=== PATIENT | female | born 1945 | race Caucasian/White ===

== ENCOUNTER 2017-01-23 08:34 | Outpatient (CLI) | payer BC ==
[2017-01-23] VITALS (9 sets, daily range): BP systolic 123–137; BP diastolic 57–70
[~2017-01-23] VITALS: Ht 158.8 cm; Wt 57.2 kg
[~2017-01-23 08:34] MED LIST: IV RINGERS,LACTATED 1000ML 1,000 ML IV SCH
[2017-01-23 08:58] LABS: HEMATOCRIT 41.2 % (36.0-47.0); HEMOGLOBIN 13.5 g/dL (12.0-15.5); RED BLOOD COUNT 4.39 x10^6/uL (3.50-5.40); RED CELL DISTRIBUTION WIDTH 13.5 % (11.5-14.5); WHITE BLOOD COUNT 6.5 x10^3/uL (4.0-11.0)
[2017-01-23] MEDS ORDERED: KRIL1CAP11 PO (09:01)
[2017-01-23] MEDS ORDERED: ASCO500T2 PO (09:01)
[2017-01-23] MEDS ORDERED: VALS80TA3 PO (09:01)
[2017-01-23] MEDS ORDERED: CARV6.252 PO (09:01)
[2017-01-23] MEDS ORDERED: CHOL10003 PO (09:01)
[2017-01-23] MEDS ORDERED: MULT-658 PO (09:01)
[2017-01-23] MEDS ORDERED: MELO7.5T29 PO (09:01)
[2017-01-23] MEDS ORDERED: AMLO5TAB2 PO (09:01)
[2017-01-23] MEDS ORDERED: IBUP200C9 PO (09:01)
[2017-01-23] MEDS ORDERED: ASPI-630 PO (09:01)
[2017-01-23] MEDS ORDERED: ASCO1TAB2 PO (09:01)
[2017-01-23] MEDS ORDERED: SOTA80TA48 PO (09:01)
[2017-01-23] MEDS ORDERED: ATOR20TA PO (09:01)
[2017-01-23] MEDS ORDERED: CA C1TAB63 PO (09:01)
[2017-01-23] MEDS ORDERED: FENO145T2 PO (09:01)
[2017-01-23] MEDS ORDERED: OMEP20CA9 PO (09:01)
[2017-01-23] MEDS ORDERED: ZOLP10TA PO (09:01)
[2017-01-23] MEDS ORDERED: MIRT15TA3 PO (09:01)
[2017-01-23 09:11] LABS: INR 1.1 (0.8-1.1); PROTHROMBIN TIME PATIENT 13.9 SEC (11.7-14.0)
[2017-01-23 09:19] LABS: CALCIUM 9.5 mg/dL (8.5-10.1); CREATININE 1.2 mg/dL (0.6-1.0); POTASSIUM 4.1 mmol/L (3.5-5.1)
[2017-01-23] MEDS ORDERED: LIDOCAINE 2% TOPICAL JELLY 30GM TUBE. TP ONE ×2 (10:13→10:45)
[2017-01-23] MEDS ORDERED: LIDOCAINE 2% VISCOUS 15 ML SOLUTION. ONE (10:13)
[2017-01-23] MEDS ORDERED: BENZOCAINE ONE 20% MUCOSAL SPRAY. (10:14)
[2017-01-23] MEDS ORDERED: PROPOFOL 20 ML IV ONE (10:15)
[2017-01-23] MEDS ORDERED: LIDOCAINE 2% PF Vial for OR 5 ML VIAL. ONE (10:15)
[2017-01-23] MEDS ORDERED: MIDAZOLAM HCL/PF 2 MG/2 ML VIAL. ONE (10:19)
[2017-01-23] MEDS ORDERED: fentaNYL PF VIAL 100 MCG/2 ML VIAL ONE (10:19)
[2017-01-23] MEDS ORDERED: NITROGLYCERIN 200 MCG/2 ML SYRINGE FOR CATH/VASC LAB. ONE (10:42)
[2017-01-23] MEDS ORDERED: HEPARIN for IV BOLUS 10,000 UNIT/10 ML VIAL. ONE (10:43)
[2017-01-23] MEDS ORDERED: IOHEXOL 300 MG/ML 100ML VIAL. ONE (10:43)
[2017-01-23] MEDS ORDERED: VERAPAMIL 5 MG/2 ML VIAL. ONE (10:43)
[2017-01-23] MEDS ORDERED: LIDOCAINE 2% 20 ML VIAL. ONE (10:43)
[2017-01-23] MEDS ORDERED: LIDOCAINE 2% 20 ML VIAL. IJ ONE (10:45)
[2017-01-23] MEDS ORDERED: BENZOCAINE ONE 20% MUCOSAL SPRAY. MM (10:45)
[2017-01-23] MEDS ORDERED: MIDAZOLAM HCL/PF 2 MG/2 ML VIAL. IV ONE (10:45)
[2017-01-23] MEDS ORDERED: LIDOCAINE 2% VISCOUS 15 ML SOLUTION. SWSW ONE (10:45)
[2017-01-23] MEDS ORDERED: IOHEXOL 300 MG/ML 100ML VIAL. IART ONE (10:45)
[2017-01-23] MEDS ORDERED: fentaNYL PF VIAL 100 MCG/2 ML VIAL IV ONE (10:45)
[2017-01-23] MEDS ORDERED: HEPARIN for IV BOLUS 10,000 UNIT/10 ML VIAL. IART ONE (10:45)
[2017-01-23] MEDS ORDERED: NITROGLYCERIN 200 MCG/2 ML SYRINGE FOR CATH/VASC LAB. IART ONE (10:45)
[2017-01-23] MEDS ORDERED: VERAPAMIL 5 MG/2 ML VIAL. IART ONE (10:45)
[2017-01-23] MEDS ORDERED: CONTRAST GIVEN MC PRN (11:15)
[2017-01-23] MEDS ORDERED: IV 1/2 NORMAL SALINE 1,000 ML IV SCH (11:54)
[2017-01-23] MEDS ORDERED: NITROGLYCERIN SUBLINGUAL 0.4 MG BOTTLE OF 25. SL PRN (12:00)
--- NOTE | 2017-01-23 12:10 | CARD ---
APPROVED REPORT Procedure(s) performed: Left heart catheterization, selective coronary angiography and selective chastity ography of the bypass graft via right transradial approach INDICATION The indication(s) include : unstable angina . PROCEDURE NARRATIVE After explaining the risks, benefits and alternative options, informed consent was obtained from brenden ent. Patient was brought to the [facility] Life and her right wrist was prepped and draped in the usu al fashion after confirming a positive modified Waqas's test. Arterial access was obtained in the [facility] radial artery and 6 Armenian sheath was inserted. 6 Armenian JR4 catheter was used to perform selectiv e angiography of the right coronary artery, sequential saphenous vein graft to the diagonal/LAD and s urprisingly also were able to engage and perform angiography of the left main coronary artery with th e same catheter. LVEDP and transaortic gradients were measured as well. Patient tolerated the procedu re well. Hemostasis was achieved using TR band. There were no immediate complications. FINDINGS 1. Hemodynamics: Left ventricle end diastolic pressure 26 mmHg. No pullback gradient across the aor tic valve. 2. Coronary and bypass graft angiography: a. The left main coronary artery arose from the left sinus of Valsalva, gave rise to the left anti-d escending and left circumflex arteries and did not show any significant stenosis. b. The left anterior descending artery showed a long 70% stenosis in the mid segment. c. The left circumflex artery did not show any significant stenosis. d. The right coronary artery was a large and dominant vessel arising from the right sinus of Valsalv a that did not show any significant stenosis. e. The sequential saphenous vein graft to the diagonal branch and the left anterior descending artery was widely patent. Conclusion Single-vessel coronary artery disease s/p coronary artery bypass surgery with patent sequential saphe nous vein graft to the diagonal branch/LAD without any other significant stenoses. Recommendations Medical Therapy
--- NOTE | 2017-01-23 12:16 | CARD ---
APPROVED REPORT EXAM: Two-dimensional and M-mode echocardiogram with Doppler and color Doppler. INDICATION S/P MVR Reason For Test : Evaluate MVR PROCEDURE After obtaining informed consent, patient underwent transesophageal echo in the [employer] [facility]. Type of Sedation : Conscious sedation Sedation was administered by nurse anesthesist, see BRITTANY.. Sedation was achieved with Propofol 120mg intravenously. The DARLYN was performed without complications. Throughout the procedure, the blood pressure, pulse oximetry, cardiac rhythm, and rate were monitored . The patient tolerated the procedure without adverse effects. Recovery from conscious sedation was une ventful and vital signs were stable. LEFT VENTRICLE The left ventricle is normal size. There is borderline concentric left ventricular hypertrophy. Left ventricle systolic function is mildly impaired. The Ejection Fraction is 45-50%. There is mild global hypokinesis of the left ventricle. No left ventricle thrombus noted on this study. RIGHT VENTRICLE The right ventricle is normal size. There is normal right ventricular wall thickness. The right ventr icular systolic function is normal. ATRIA The left atrium is borderline dilated. The right atrium size is normal. The interatrial septum is int act with no evidence for an atrial septal defect or patent foramen ovale as noted on 2-D or Doppler i maging. There is no thrombus noted in the left atrial appendage. AORTIC VALVE The aortic valve is mildly sclerotic. The aortic valve is trileaflet. Doppler and Color Flow revealed trace aortic regurgitation. There is no significant aortic valvular stenosis. MITRAL VALVE There is a bioprosthetic mitral valve in place. Bioprosthesis leaflets are thin and move normally. Do ppler evidence of mitral regurgitation is normal for this valve (mild). Gradients are normal for this prosthetic mitral valve (Pmean 4-5 mmHg.) There are no vegetations present on this prosthetic mitral valve. TRICUSPID VALVE Doppler and Color Flow revealed trace tricuspid regurgitation. The pulmonary artery systolic pressure is estimated at 17 mmHg. There is no pulmonary hypertension. PULMONIC VALVE Doppler and Color Flow revealed no pulmonic valvular regurgitation. There is no pulmonic valvular kendy nosis. GREAT VESSELS The aortic root is normal in size. The ascending aorta is normal in size. The pulmonary is not well v isualized. Normal pulmonary venous flow (Doppler). The IVC is normal in size and collapses >50% with inspiration. PERICARDIAL EFFUSION There is no evidence of significant pericardial effusion. Critical Notification Critical Value: No <Conclusion> Left ventricle systolic function is mildly impaired. The Ejection Fraction is 45-50%. Bioprosthetic mitral valve appears well seated and functioning well. Doppler and Color Flow revealed trace tricuspid regurgitation. There is no evidence of significant pericardial effusion.
== END 2017-01-23 13:53 | disposition home or self-care (01) ==
LOC: CCL 08:34
PROVIDERS: ATTEND Internal Medicine Cardiovascular Disease
DX: I25.10 Atherosclerotic heart disease of native coronary artery without angina pectoris (principal); I20.0 Unstable angina; I10 Essential (primary) hypertension; I07.1 Rheumatic tricuspid insufficiency; I34.0 Nonrheumatic mitral (valve) insufficiency; Z90.49 Acquired absence of other specified parts of digestive tract; Z90.710 Acquired absence of both cervix and uterus; Z79.01 Long term (current) use of anticoagulants
CPT/HCPCS: 36415; 80048; 85027; 85610; 85730; 93312; 93325; 93459; 99152; 99153; C1769; C1892; J2250; J2704; J3010; J3490; Q9967; C1887; J1644; J2001; J7120

== ENCOUNTER → 2017-05-23 | Outpatient (CLI) | payer BC ==
[2017-01-23 13:12] VITALS: BP 136/57
[~2017-05-23] MED LIST changes: +AMLO5TAB2 PO; +ASCO1TAB2 PO; +ASCO500T2 PO; +ASPI-630 PO; +ATOR20TA PO; +CA C1TAB63 PO; +CARV6.252 PO; +CHOL10003 PO; +FENO145T2 PO; +IBUP200C9 PO; -IV RINGERS,LACTATED 1000ML 1,000 ML IV SCH; +KRIL1CAP10 PO; +MELO7.5T29 PO; +MIRT15TA3 PO; +MULT-658 PO; +OMEP20CA9 PO; +SOTA80TA48 PO; +VALS80TA3 PO; +ZOLP10TA PO
--- NOTE | 2017-05-23 14:45 | KCIC ---
DATE: 05/23/2017 EXAM: MAMMO DENA SCREENING BILATERAL HISTORY: Screening COMPARISON: 3 years earlier This study was interpreted with the benefit of Computerized Aided Detection (CAD). FINDINGS: Breast Density: SCATTERED The breast parenchyma shows scattered fibroglandular densities. Breast parenchyma level B. There has not been a significant change in the appearance of the breasts compared to the previous exam IMPRESSION: Benign finding BI-RADS CATEGORY: 2 BENIGN FINDING(S) RECOMMENDED FOLLOW-UP: 12M 12 MONTH FOLLOW-UP PQRS compliance statement: Patient information was entered into a reminder system with a target due date 05/23/2018 for the next mammogram. Mammography is a sensitive method for finding small breast cancers, but it does not detect them all and is not a substitute for careful clinical examination. A negative mammogram does not negate a clinically suspicious finding and should not result in delay in biopsying a clinically suspicious abnormality. "Our facility is accredited by the [employer] Mammography Program."
== END | disposition home or self-care (01) ==
LOC: KCIC MAMMO 13:28
PROVIDERS: ATTEND Internal Medicine
DX: Z12.31 Encounter for screening mammogram for malignant neoplasm of breast (principal)
CPT/HCPCS: 77063; G0202; 77067

== ENCOUNTER → 2018-08-20 | Outpatient (CLI) | payer BC ==
[2017-01-23 13:12] VITALS: BP 136/57
[~2018-08-20] MED LIST changes: +AMLO5TAB10 PO; -AMLO5TAB2 PO; +CARV6.2511 PO; -CARV6.252 PO; +DICL100G18 TP; -FENO145T2 PO; +FENO145T30 PO; +OMEP20CA10 PO; -OMEP20CA9 PO; +SERT25TA PO
--- NOTE | 2018-08-20 15:27 | CARD ---
MR#: [id number] Date of Study: 08/20/2018 Ordering Physician: ANGELIA LOBO, Referring Physician: ANGELIA LOBO Tech: Tyesha Craig RDCS APPROVED REPORT EXAM: Two-dimensional and M-mode echocardiogram with Doppler and color Doppler. Other Information Quality : Good INDICATION Mitral Valve Replacement Surgery/Intervention Status/Post Mitral Valve Replacement: Bioprosthetic Type: Porcine Date: 2008 2D DIMENSIONS RVDd2.3 (2.9-3.5cm)Left Atrium(2D)4.5 (1.6-4.0cm) IVSd1.0 (0.7-1.1cm)Aortic Root(2D)2.2 (2.0-3.7cm) LVDd4.4 (3.9-5.9cm)LVOT Diameter1.9 (1.8-2.4cm) PWd1.0 (0.7-1.1cm)LVDs3.2 (2.5-4.0cm) FS (%) 28.0 %SV48.1 ml LVEF(%)54.4 (>50%) Aortic Valve AoV Peak Ponce.143.2cm/sAoV VTI26.6cm AO Peak GR.8.2mmHgLVOT Peak Ponce.97.5cm/s AO Mean GR.4mmHgAVA (VMAX)1.93cm2 MASHA (VTI)2.13pi2PK P 1/2 Gubh529sk Mitral Valve MV E Iyfcoxjk326.1cm/sMV E Peak Gr.8mmHg MV DECEL OOYD563uyWE A Dsvqscfd662.9cm/s MV E Mean Gr.4mmHgE/A Ratio0.9 Tricuspid Valve TR P. Ywrqoszr086zv/sRAP XJSNBIPH4xwQk TR Peak Gr.53qdLfGRKG96lvXd Pulmonary Vein S1 Ywzoeeoz35.9cm/sD2 Uozvexkr50.4cm/s LEFT VENTRICLE The left ventricle is normal size. There is normal left ventricular wall thickness. The left ventricu lar systolic function is normal. The Ejection Fraction is 50-55%. There is normal LV segmental wall m otion. Transmitral Doppler flow pattern is Grade I-abnormal relaxation pattern. RIGHT VENTRICLE The right ventricle is normal size. The right ventricular systolic function is normal. ATRIA The left atrium is mildly dilated. The right atrium size is normal. The interatrial septum is intact with no evidence for an atrial septal defect or patent foramen ovale as noted on 2-D or Doppler imagi ng. AORTIC VALVE The aortic valve is calcified but opens well. Doppler and Color Flow revealed moderate aortic regurgi tation. There is no significant aortic valvular stenosis. MITRAL VALVE There is no evidence of mitral valve prolapse. Calculated mitral valve area is 1.3 cm2 with maximum p ressure gradient of 8 mmHg and mean pressure gradient of 4 mmHg. Doppler and Color-flow revealed trac e mitral regurgitation. There is a porcine mitral valve. Prosthetic mitral valve appears well seated. TRICUSPID VALVE The tricuspid valve is normal in structure and function. Doppler and Color Flow revealed mild tricusp id regurgitation. The PA pressure was estimated at 25 mmHg. There is no tricuspid valve stenosis. PULMONIC VALVE The pulmonary valve is normal in structure and function. Doppler and Color Flow revealed mild pulmoni c valvular regurgitation. There is no pulmonic valvular stenosis. GREAT VESSELS The aortic root is normal in size. The ascending aorta is normal in size. The IVC is normal in size a nd collapses >50% with inspiration. PERICARDIAL EFFUSION There is no evidence of significant pericardial effusion. Critical Notification Critical Value: No <Conclusion> The left ventricular systolic function is normal. The Ejection Fraction is 50-55%. There is normal LV segmental wall motion. Transmitral Doppler flow pattern is Grade I-abnormal relaxation pattern. The left atrium is mildly dilated. Moderate aortic regurgitation. Bioprosthetic mitral valve appears well seated and functioning well. Mild tricuspid regurgitation. The PA pressure was estimated at 25 mmHg. There is no evidence of significant pericardial effusion. Signed by : Angelia Lobo, Electronically Approved : 08/20/2018 15:25:42
== END | disposition home or self-care (01) ==
LOC: ECHO 13:55
PROVIDERS: ATTEND Internal Medicine Cardiovascular Disease
DX: Z01.818 Encounter for other preprocedural examination (principal); I08.2 Rheumatic disorders of both aortic and tricuspid valves; Z95.4 Presence of other heart-valve replacement
CPT/HCPCS: 93306

== ENCOUNTER → 2019-02-27 | Outpatient (CLI) | payer BC ==
[2017-01-23 13:12] VITALS: BP 136/57
[~2019-02-27] MED LIST changes: +REGADENOSON 0.4 MG/5 ML DISP.SYRIN. IV ONE
--- NOTE | 2019-02-27 12:09 | RAD ---
MR#: [id number] Date of Study: 02/27/2019 Ordering Physician: ANGELIA LOBO, Referring Physician: DANIA LYNN Tech: RT Jadon Cardoso) (N) APPROVED REPORT Test Type: Pharmacological Stress Nurse/Tech: Lashonda Monterroso RN Test Indications: CAD Cardiac History: Hypertension, CABG x2 and mitral valve replacement Medications: See Electronic Medical Record Medical History: See Electronic Medical Record Resting ECG: A-fib with PVC's Resting Heart Rate: 59 bpm Resting Blood Pressure: 139/63mmHg Pretest Chest Pain: No chest pain Nurse/Tech Notes S1,S2 and click from valve. Lungs clear to auscultation. Consent: The procedure was explained to the patient in lay terms. Informed consent was witnessed. Velasquez eout was entered into [employer]. History and Stress Test performed by RT Janae (Yuri) (N) Pharm. Details Pharmacologic stress testing was performed using 0.4mg per 5ml of regadenoson given intravenously ove r 7-10 seconds. Stress Symptoms Dyspnea POST EXERCISE Reason for Termination: Infusion complete Target HR: No Max HR: 97 bpm Max Blood Pressure: 126/52mmHg Blood Pressure response to exercise: Abnormal blood pressure response during stress. Heart Rate response to exercise: WNL Chest Pain: No. Arrhythmia: Yes. PVC's ST Change: No. INTERPRETATION Stress EKG Conclusion: No evidence of stress induced EKG changes. Imaging Protocol IMAGE PROTOCOL: Rest Tc-99m/stress Tc-99m 1 day Rest: Stress: Viability: Radiopharm.Tc99m OygqnuspwXg47n Sestamibi Dose10.3mCi 33mCi Duration 13min. 13min. Img Date 02/27/2019 02/27/2019 Inj-Img Zgvt25beh. 60min. Rest Admin Site:IV - Left AntecubitalAdministrator:RT Jadon Cardoso)(N) Stress Admin Site: IV - Left AntecubitalAdministrator: RT Jadon York)(N) STRESS DATA End Diast. Vol.74.0mlLVEDV index BSA48.0ml End Syst. Vol.19.0mlLVESV index BSA12.0ml Myocardial Figm404.0gEject. Perpkjas87.0% Stress Scores Regional WT0.00Summed WT5.00 Regional WM0.00Summed WM8.00 LV Perfusion There is a moderate sized, moderate to severe in intensity, fully reversible basal to mid inferior wa ll defect suggestive of perfusion abnormalities in the RCA territory. Wall Motion Normal wall motion, EF 65% LV Perf. Quant 17 Seg. SSS6.00 17 Seg. SRS2.00 17 Seg. SDS4.00 Stress Defect Extent (% LAD)0.00Rest Defect Extent (% LAD)0.00Rev. Defect Extent (% LAD)0.00 Stress Defect Extent (% LCX) 2.50Rest Defect Extent (% LCX)1.30Rev. Defect Extent (% LCX)0.00 Stress Defect Extent (% RCA)30.00Rest Defect Extent (% RCA)7.80Rev. Defect Extent (% RCA)15.60 Stress Defect Extent (% LAURENCE)10.00Rest Defect Extent (% LAURENCE)4.60Rev. Defect Extent (% LAURENCE)3.70 Other Information Quality:Good Risk Assessment: Moderate Risk Conclusion 1. No evidence of stress induced EKG changes 2. Reversible inferior wall defect. 3. Moderate risk study 4. Normal EF at > 70% Signed by : Justyn Baca, Electronically Approved : 02/27/2019 12:08:31
== END | disposition home or self-care (01) ==
LOC: NM 08:01
PROVIDERS: ATTEND Internal Medicine Cardiovascular Disease
DX: I25.10 Atherosclerotic heart disease of native coronary artery without angina pectoris (principal); I10 Essential (primary) hypertension; I49.3 Ventricular premature depolarization; I48.91 Unspecified atrial fibrillation; Z95.2 Presence of prosthetic heart valve; Z95.1 Presence of aortocoronary bypass graft
CPT/HCPCS: 78452; 93017; A9500; J2785

== ENCOUNTER 2019-03-07 08:34 | Outpatient (CLI) | payer BC ==
[~2019-03-07] VITALS: Ht 157.5 cm; Wt 58.1 kg
[2019-03-07] VITALS (11 sets, daily range): BP systolic 98–143; BP diastolic 55–77
[~2019-03-07 08:34] MED LIST changes: -REGADENOSON 0.4 MG/5 ML DISP.SYRIN. IV ONE
[2019-03-07 09:26] LABS: HEMATOCRIT 36.2 % (36.0-47.0); HEMOGLOBIN 12.3 g/dL (12.0-15.5); RED BLOOD COUNT 3.92 x10^6/uL (3.50-5.40); RED CELL DISTRIBUTION WIDTH 13.4 % (11.5-14.5)
[2019-03-07 09:27] LABS: CREATININE 0.8 mg/dL (0.6-1.0); GFR 69.9; POTASSIUM 3.9 mmol/L (3.5-5.1)
[2019-03-07 09:43] LABS: PROTHROMBIN TIME PATIENT 13.7 SEC (11.7-14.0)
[2019-03-07] MEDS ORDERED: NITROGLYCERIN 200 MCG/2 ML SYRINGE FOR CATH/VASC LAB. ONE (09:52)
[2019-03-07] MEDS ORDERED: VERAPAMIL 5 MG/2 ML VIAL. ONE ×2 (09:52→10:00)
[2019-03-07] MEDS ORDERED: fentaNYL PF VIAL 100 MCG/2 ML VIAL ONE (09:52)
[2019-03-07] MEDS ORDERED: MIDAZOLAM HCL/PF 2 MG/2 ML VIAL. ONE ×2 (09:52→10:42)
[2019-03-07] MEDS ORDERED: HEPARIN for IV BOLUS 10,000 UNIT/10 ML VIAL. ONE (09:52)
[2019-03-07] MEDS ORDERED: HEPARIN for IV BOLUS 10,000 UNIT/10 ML VIAL. IART ONE (10:45)
[2019-03-07] MEDS ORDERED: VERAPAMIL 5 MG/2 ML VIAL. IART ONE (10:45)
[2019-03-07] MEDS ORDERED: MIDAZOLAM HCL/PF 2 MG/2 ML VIAL. IV ONE (10:45)
[2019-03-07] MEDS ORDERED: LIDOCAINE 1% PF 2 ML VIAL. INJ ONE (10:45)
[2019-03-07] MEDS ORDERED: IODIXANOL 320 MG/ML 100 ML VIAL. IART ONE (10:45)
[2019-03-07] MEDS ORDERED: fentaNYL PF VIAL 100 MCG/2 ML VIAL IV ONE (10:45)
[2019-03-07] MEDS ORDERED: NITROGLYCERIN 200 MCG/2 ML SYRINGE FOR CATH/VASC LAB. IART ONE (10:45)
[2019-03-07] MEDS ORDERED: LIDOCAINE 1% Multi-Dose 20 ML VIAL. ONE (10:46)
[2019-03-07] MEDS ORDERED: LIDOCAINE 1% Multi-Dose 20 ML VIAL. INJ ONE (11:00)
--- NOTE | 2019-03-07 11:12 | PDOC ---
MODERATE SEDATION ASSESSMENT RISKS/ALTERNATIVES Risks/Alternatives Risks and alternatives of this type of sedation and procedure discussed with: RISK/ALTERNATIVES: Patient H & P ON CHART H & P H & P on chart and reviewed for co-morbid conditions and appropriate labs. H&P ON CHART: Yes STATUS PREG STATUS ASSESSED: N/A MEDS/ALLERGIES REVIEWED Meds/Allergies Reviewed Medications and Allergies including time and route of recently administered narcotics and sedatives. MEDS/ALLERGIES REVIEWED: Yes ASA RATING ASA RATING: III AIRWAY ASSESSMENT Airway Assessment Airway patency, oral function limitations, presence of caps, crowns, dentures, partials, and ability to extend neck assessed. AIRWAY ASSESSMENT: Yes MALLAMPATI SCORE MALLAMPATI SCORE: II PRE-SEDATION ASSESSMENT PRE-SEDATION ASSESSMENT: Yes ANGELIA LOBO MD Mar 07, 2019 11:12
[2019-03-07] MEDS ORDERED: IV 1/2 NORMAL SALINE 1,000 ML IV SCH (11:13)
[2019-03-07] MEDS ORDERED: NITROGLYCERIN SUBLINGUAL 0.4 MG BOTTLE OF 25. SL PRN (11:15)
--- NOTE | 2019-03-07 11:46 | CARD ---
MR#: [id number] Date of Study: 03/07/2019 Ordering Physician: ANGELIA TRUJILLO, Referring Physician: ANGELIA TRUJILLO Tech: Skye Nettles APPROVED REPORT Technologist: Skye Nettles Nurse: Thuy Amezquita R.N. Procedure(s) performed: Left heart catheterization, selective coronary angiography, selective angiogr aphy of the bypass graft and left ventriculography fl time: 2.6 min dose: 23 gy/cm2 contrast: 85 ml sedation: 58 MINS INDICATION The indication(s) include : Dyspnea on exertion in a patient with known history of coronary artery di sease concerning for unstable angina. CSHA Clinical Frailty Scale CSHA Clinical Frailty Scale: Mildly Frail Heart Failure Heart Failure: No PROCEDURE NARRATIVE After explaining the risks, benefits and alternative options, informed consent was obtained from brenden ent. Patient was brought to the cardiac Business Services Director and her right wrist was prepped and draped in the us ual fashion after confirming a positive modified Waqas's test. Attempts at obtaining radial arterial access were unsuccessful due to small caliber vessel. 10 mL of 2% lidocaine was then infiltrated into the skin and subcutaneous tissues of previously prepped right groin, arterial access obtained in the common femoral artery and 6 [place] Leonean sheath was inserted. 6 [place] JL 3.5 and 6 [place] JR4 catheters p laced to perform selective angiography of the left and right coronary arteries. 6 [place] JR4 catheter was then used to perform selective angiography of the sequential saphenous vein graft to the diagona l/left anterior descending artery. 6 [place] pigtail catheter was used to perform left ventriculograph y. Patient tolerated the procedure well. Hemostasis was achieved using Angio-Seal. There were no imme diate complications. FINDINGS 1. Hemodynamics: Left ventricular end-diastolic pressure 15 mmHg. No pullback gradient across the a ortic valve. 2. Left ventriculography: Mild left ventricle systolic dysfunction with ejection fraction estimated at 45%. 1+ mitral regurgitation seen. 3. Coronary and bypass graft angiography: a. The left main coronary artery arose from the left sinus of Valsalva, gave rise to the left anteri or descending and left circumflex arteries and did not show any significant stenosis. b. The left anterior descending artery showed 80% stenosis in the midsegment. c. The left circumflex artery did not show any significant stenosis. d. The right coronary artery was a large and dominant vessel arising from the right sinus of Valsalv a that did not show any significant stenosis. e. The graft described in CABG report as sequential saphenous vein graft from aorta to diagonal branc h and then the left anterior descending artery was patent. However, upon closer review of films after the procedure, this vein graft appeared to end at the diagonal branch. There was competitive flow in the very distal segment of the left anterior descending artery suggestive of an additional patent gr aft. Conclusion 1. Single-vessel coronary artery disease involving left anterior descending artery s/p CABG with pat ent saphenous vein graft to diagonal/LAD 2. Mild left ventricle systolic dysfunction with ejection fraction estimated at 45%. Recommendations Medical Therapy Signed by : Angelia Trujillo, Electronically Approved : 03/07/2019 11:45:45
--- NOTE | 2019-03-07 13:46 | NUR ---
Discharge Note: RAMIREZ TAYLOR Discharge instructions and discharge home medications reviewed with Patient and ; and a copy given. All questions have been answered and understanding verbalized. The following instructions and handouts were given: Post moderate sedation and groin site care. Discontinued lines and drains: left AC with tip intact. Patient discharged to home with via car.
== END 2019-03-07 13:36 | disposition home or self-care (01) ==
LOC: CCL 08:34
PROVIDERS: ATTEND Internal Medicine Cardiovascular Disease
DX: I25.10 Atherosclerotic heart disease of native coronary artery without angina pectoris (principal); R93.49 Abnormal radiologic findings on diagnostic imaging of other urinary organs; R00.2 Palpitations; I10 Essential (primary) hypertension; E78.5 Hyperlipidemia, unspecified; I48.0 Paroxysmal atrial fibrillation; Z90.49 Acquired absence of other specified parts of digestive tract; Z90.710 Acquired absence of both cervix and uterus; Z79.82 Long term (current) use of aspirin; Z79.899 Other long term (current) drug therapy; Z95.1 Presence of aortocoronary bypass graft; Z98.890 Other specified postprocedural states; Z95.2 Presence of prosthetic heart valve; Z82.49 Family history of ischemic heart disease and other diseases of the circulatory system
CPT/HCPCS: 36415; 80048; 85027; 85610; 93459; C1760; C1769; C1892; G0269; J1644; J2250; J3010; Q9967; 99152; 99153; C1771

== ENCOUNTER → 2019-10-17 | Outpatient (CLI) | payer BC ==
[2019-03-07 13:27] VITALS: BP 126/66
[~2019-10-17] MED LIST changes: +ACET325T9 PO; +FENO145T3 PO; -FENO145T30 PO; +IOHEXOL 240 MG/ML 50ML VIAL. ONE; +LOPE-101 PO; -OMEP20CA10 PO; +OMEP20CA16 PO; +methylPREDNISolone ACETATE 40 MG/ML VIAL. ONE; +methylPREDNISolone ACETATE 80 MG/ML VIAL. ONE
--- NOTE | 2019-10-17 15:28 | PAIN ---
DATE OF SERVICE: 10/17/2019 INITIAL CONSULTATION FOR PAIN CLINIC CHIEF COMPLAINT: Right-sided back and flank pain. HISTORY OF PRESENT ILLNESS: This is a 73-year-old female who presents with history of pain in right flank and back since shingles outbreak about a month ago. The patient reports it has been getting worse since about the last 2 weeks as far as the pain goes. The rash has resolved and the lesions have resolved. She has been taking acyclovir initially and also gabapentin and taking tramadol which does decrease the pain to a moderate extent. The patient reports that she no longer has any active lesions but has significant pain in the area of the rash on the right side, basically the mid to low part of the back with radiation around into the right hip and anterior iliac region and upper right thigh on the right side. The patient reports that it is sharp and stabbing, worse with activity, much worse at night, and is keeping her awake from sleep. During the day, she reports it has been fairly tolerable and taking gabapentin as well as putting Lidoderm patches on, which have helped also. The patient reports it awakens him from sleep at least every hour. The patient reports that it does not affect her bowel or bladder control or ability to walk. During the day, it is actually slightly better. The patient reports that valacyclovir seemed to help initially, but now the pain is returning significantly in the distribution of the rash on the right side only. The patient reports no loss of motor function. No left sided symptoms as well. PAST MEDICAL HISTORY: Significant for hypertension, artificial heart valve, congestive heart failure, and coronary artery bypass in the past with coronary artery disease. The patient has history of arthritis, dizziness, and headaches. PREVIOUS SURGERY: Includes right knee replacement, cataract extraction bilaterally, open heart surgery, mitral valve repair, colostomy and takedown, hysterectomy, cholecystectomy, and appendectomy. CURRENT MEDICATIONS: Include daily baby aspirin, Ambien, atorvastatin, fenofibrate, Diovan, sotalol, carvedilol, amlodipine, Tylenol, and loperamide. Also Advil, omeprazole, Krill Oil, vitamins, calcium, ascorbic acid, and vitamin D3. 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 FAMILY HISTORY: Significant for coronary artery disease and heart failure. SOCIAL HISTORY: The patient does not drink alcohol, but very rarely. Does not use any tobacco products. Denies any illegal, illicit, or recreational drugs. She is and lives with her spouse. Lives locally in [place], [place]. She reports she is currently retired. REVIEW OF SYSTEMS: The patient's review of systems is positive for those items mentioned in history of present illness. All systems reviewed and otherwise negative. It is complete, full, and well documented on the patient's chart. PHYSICAL EXAMINATION: VITAL SIGNS: The patient's blood pressure is 164/91, pulse 78, respirations 18, temperature 98.4 degrees Fahrenheit, height 5 feet 2 inches, and weight is 122 pounds. GENERAL: The patient is awake, alert, oriented, and appropriate. Very pleasant demeanor. HEENT: Normocephalic and atraumatic. Extraocular movements are intact and symmetrical. Oral cavity: Mucous membranes are moist and pink. Dentition is intact. NECK: Anterior throat supple without palpable lymphadenopathy noted. Swallow reflex symmetrical. CHEST: Normal on inspection. Breath sounds are clear to auscultation bilaterally. HEART: S1, S2 clear. No murmurs auscultated. ABDOMEN: Soft, nontender, and nondistended. No palpable organomegaly is noted. No rebound or guarding demonstrated. BACK: Spine grossly in the midline. Normal appearing thoracic kyphosis and slight flattening of lumbar lordotic curvature. The patient's lumbar paraspinous muscle shows symmetrical on inspection and palpation shows some moderate tenderness diffusely bilaterally, going diffusely without significant radiation. The patient has good rotational motion of the lumbar spine, both laterally as well as extension and flexion without significant pain reported. The patient has a very faint erythematous rash in the mid to lower lumbar distribution, radiating or traveling into the right and then to the right flank and is continuing to the right lower abdomen and just inferior to the superior iliac crest on the right side but not to the midline. No active lesions, no blisters, no scabbing, and appears well-healed throughout. No such rashes on the left side. The area of the rash is mildly tender without significant allodynia with palpation. EXTREMITIES: The patient's lower extremities show deep tendon reflexes 2+ in the patellar and tendo calcaneus tendons are 1+. Motor exam is strong with 5/5 dorsiflexion and extension. Quadriceps and hamstring flexion symmetrical and equal. Peripheral pulses are 1+ in posterior tibia. No peripheral edema is noted bilaterally. The patient is able to stand, stand on her toes, walks without any difficulty and with a normal-appearing gait, not using any assistive devices. SKIN: The patient's skin shows warm and dry and good turgor. No edema. No other sores or bruising outside of the rash mentioned in the low back. IMPRESSION: 1. This is a 73-year-old female with approximately 1-month history of post-herpetic neuralgia after shingles outbreak in right lumbar distribution as noted. 2. History of coronary artery disease. 3. Arthritis. 4. Dizziness and headaches. PLAN: Options were discussed with the patient including conservative medical managements, continued medical managements, physical therapies, as well as interventional techniques. She would like to pursue interventional techniques. We discussed a lumbar epidural steroid injection using description as well as anatomical models to describe the procedure. The patient would like to proceed with this. Risks were discussed including but not limited to bleeding, infection, possibility of epidural hematoma, subsequent neurological compromise, dural puncture, headaches, spinal cord and/or nerve damage, side effects of steroid medication, and poor results regarding pain control. The patient understands and wished to proceed. The patient will return to clinic in approximately 2 weeks for followup. She was counseled on return appointment, activity level, and side effects to be aware of. DIAGNOSIS: Postherpetic neuralgia, right L1-L2 distribution. PROCEDURE: Lumbar epidural steroid injection, translaminar approach at L1-L2 level using C-arm fluoroscopic guidance under sterile prep and drape using local anesthetic. MEDICATION INJECTED: A total of 120 mg Depo-Medrol plus 10 mL preservative-free normal saline and 2 mL of contrast. CONDITION AT DISCHARGE: Stable. The patient tolerated procedure well and had no complications. MADISON EDEN MD DR: GOPAL/diana JOB#: [id number] / [id number]
== END ==
LOC: PNCL 09:50
PROVIDERS: ATTEND Family Medicine
DX: B02.29 Other postherpetic nervous system involvement (principal); M51.26 Other intervertebral disc displacement, lumbar region; I11.0 Hypertensive heart disease with heart failure; I50.9 Heart failure, unspecified; I25.10 Atherosclerotic heart disease of native coronary artery without angina pectoris; Z95.1 Presence of aortocoronary bypass graft; Z87.39 Personal history of other diseases of the musculoskeletal system and connective tissue; Z98.42 Cataract extraction status, left eye; Z98.41 Cataract extraction status, right eye; Z93.3 Colostomy status; Z90.710 Acquired absence of both cervix and uterus; Z90.49 Acquired absence of other specified parts of digestive tract; Z88.1 Allergy status to other antibiotic agents; Z96.1 Presence of intraocular lens
CPT/HCPCS: 62323; J1030; J1040; Q9966; 62273

== ENCOUNTER → 2020-02-17 | Outpatient (CLI) | payer BC ==
[2019-03-07 13:27] VITALS: BP 126/66
[~2020-02-17] MED LIST changes: -ASCO500T2 PO; +ASCO500T4 PO; +BARIUM SULFATE 0.1% 450 ML SUSP PO ONE; -DICL100G18 TP; +DICL100G54 TP; -IOHEXOL 240 MG/ML 50ML VIAL. ONE; +IOHEXOL 300 MG/ML 100ML VIAL. IV ONE; -methylPREDNISolone ACETATE 40 MG/ML VIAL. ONE; -methylPREDNISolone ACETATE 80 MG/ML VIAL. ONE
--- NOTE | 2020-02-17 15:53 | KCIC ---
CT abdomen and pelvis with contrast History: Chronic diarrhea, ileitis Technique: After the administration of intravenous contrast, CT imaging was performed of the abdomen and pelvis. Water-soluble contrast was also given. Multiplanar images are reviewed. Exposure: One or more of the following individualized dose reduction techniques were utilized for this examination: 1. Automated exposure control 2. Adjustment of the mA and/or kV according to patient size 3. Use of iterative reconstruction technique. Comparison: None Findings: There has been median sternotomy. There is coronary calcification. There is no significant focal abnormality of the liver, spleen, pancreas, adrenal glands. There is probable degree of hepatic steatosis. Both kidneys enhance without hydronephrosis. There is 2.6 cm cyst of the superior medial left kidney. There is a 1.9 cm cyst of the mid to inferior left kidney. There is a 0.8 cm cyst of the mid to inferior right kidney. Gallbladder is absent. The common bile duct is somewhat prominent about 0.9 cm although sometimes can be normally seen after cholecystectomy. There is partially calcified herbert hepatis node about 1.1 cm short axis dimension. There is scattered mild calcified plaque of the abdominal aorta. There is 1.9 cm diverticulum along the posterior wall of stomach. There is long segment degree of wall thickening and enhancement of the proximal small bowel such as on the left abdomen and also of the duodenum. There is anastomotic site of the mid to distal sigmoid colon, also evidence of appendectomy. There is scattered colonic diverticulosis greater of the right colon. There is no significant inflammatory type change about the bowel. There is no significant free fluid or free air. Urinary bladder is distended. There is minimal fat in the right inguinal canal, no internal bowel. There is variable multilevel lumbar degenerative disc disease and facet degenerative change. There is degenerative change of the pubic symphysis. There is mild lumbar levoscoliosis. There is fat-containing left Bochdalek hernia. Uterus is absent. Impression: 1. There is long segment wall prominence of segments of proximal small bowel such as in the left abdomen and of the duodenum as could be seen with enteritis in the appropriate clinical setting. There is no significant localized inflammatory type change about the bowel. There is colonic diverticulosis greater of the right colon, not associated with adjacent inflammatory change. 2. There are bilateral renal cysts. There is probable hepatic steatosis. 3. There is distention of urinary bladder. Electronically signed by: Dylon Cho MD (02/17/2020 3:50 PM) [id number]
== END | disposition home or self-care (01) ==
LOC: KCIC CT 08:48
PROVIDERS: ATTEND Internal Medicine Gastroenterology
DX: K57.30 Diverticulosis of large intestine without perforation or abscess without bleeding (principal); K46.9 Unspecified abdominal hernia without obstruction or gangrene; N28.1 Cyst of kidney, acquired; I70.0 Atherosclerosis of aorta; N32.89 Other specified disorders of bladder; M51.36 Other intervertebral disc degeneration, lumbar region; K52.9 Noninfective gastroenteritis and colitis, unspecified
CPT/HCPCS: 74177; 82565; Q9967

== ENCOUNTER → 2020-04-08 | Outpatient (CLI) | payer BC ==
[2019-03-07 13:27] VITALS: BP 126/66
[~2020-04-08] MED LIST changes: -BARIUM SULFATE 0.1% 450 ML SUSP PO ONE; -IOHEXOL 300 MG/ML 100ML VIAL. IV ONE
--- NOTE | 2020-04-08 15:10 | CARD ---
MR#: [id number] Date of Study: 04/08/2020 Ordering Physician: ANGELIA LOBO, Referring Physician: ANGELIA LOBO Tech: Tyseha Craig RDCS APPROVED REPORT EXAM: Two-dimensional and M-mode echocardiogram with Doppler and color Doppler. Other Information Quality : Good INDICATION Cardiac Disease: CAD Mitral Valve Disease Surgery/Intervention Status/Post Mitral Valve Replacement: Bioprosthetic Date: 06/14 2D DIMENSIONS RVDd2.6 (2.9-3.5cm)Left Atrium(2D)4.3 (1.6-4.0cm) IVSd0.9 (0.7-1.1cm)Aortic Root(2D)2.6 (2.0-3.7cm) LVDd4.7 (3.9-5.9cm)LVOT Diameter1.9 (1.8-2.4cm) PWd0.9 (0.7-1.1cm)LVDs3.3 (2.5-4.0cm) FS (%) 30.1 %SV58.4 ml Aortic Valve AoV Peak Ponce.140.1cm/sAoV VTI27.8cm AO Peak GR.7.8mmHgAO Mean GR.4mmHg AI P 1/2 [id number] Mitral Valve MV E Smkrzhnk803.3cm/sMV E Peak Gr.12mmHg MV DECEL [id number] A Lisjkdqy487.5cm/s MV E Mean Gr.5mmHgE/A Ratio1.4 Tricuspid Valve TR P. Jnugosuz885fk/sRAP NLYZGVFA0aeVz TR Peak Gr.15wqPiRTVZ67rcNc Pulmonary Vein S1 Qhvsozaa32.7cm/sD2 Ilhiicow25.1cm/s LEFT VENTRICLE The left ventricle is normal size. There is normal left ventricular wall thickness. Left ventricle sy stolic function is low normal. The Ejection Fraction is 50-55%. Septal motion consistent with post-op erative state. Transmitral Doppler flow pattern is Grade II-pseudonormal filling dynamics. RIGHT VENTRICLE The right ventricle is normal size. The right ventricular systolic function is normal. ATRIA The left atrium is mildly dilated. The right atrium size is normal. The interatrial septum is intact with no evidence for an atrial septal defect or patent foramen ovale as noted on 2-D or Doppler imagi ng. AORTIC VALVE The aortic valve is calcified but opens well. Doppler and Color Flow revealed mild aortic regurgitati on. There is no significant aortic valvular stenosis. MITRAL VALVE There is no evidence of mitral valve prolapse. Calculated mitral valve area is 2.3 cm2 with maximum p ressure gradient of 12 mmHg and mean pressure gradient of 5 mmHg. Doppler and Color-flow revealed tra ce mitral regurgitation. There is a bioprosthetic mitral valve. Prosthetic mitral valve appears well seated. TRICUSPID VALVE The tricuspid valve is normal in structure and function. Doppler and Color Flow revealed mild tricusp id regurgitation. The PA pressure was estimated at 28 mmHg. There is no tricuspid valve stenosis. PULMONIC VALVE The pulmonary valve is normal in structure and function. Doppler and Color Flow revealed mild pulmoni c valvular regurgitation. There is no pulmonic valvular stenosis. GREAT VESSELS The aortic root is normal in size. The ascending aorta is normal in size. The IVC is normal in size a nd collapses >50% with inspiration. PERICARDIAL EFFUSION There is no evidence of significant pericardial effusion. Critical Notification Critical Value: No <Conclusion> The left ventricle is normal size. Left ventricle systolic function is low normal. The Ejection Fraction is 50-55%. Septal motion consistent with post-operative state. Doppler and Color Flow revealed mild aortic regurgitation. There is no significant aortic valvular stenosis. There is a bioprosthetic mitral valve. Prosthetic mitral valve appears well seated. Doppler and Color-flow revealed trace mitral regurgitation. Calculated mitral valve area is 2.3 cm2 with maximum pressure gradient of 12 mmHg and mean pressure g radient of 5 mmHg. Doppler and Color Flow revealed mild tricuspid regurgitation. The PA pressure was estimated at 28 mmHg. Signed by : Scott Ortiz MD Electronically Approved : 04/08/2020 15:10:20
== END | disposition home or self-care (01) ==
LOC: ECHO 12:56
PROVIDERS: ATTEND Internal Medicine Cardiovascular Disease
DX: I08.8 Other rheumatic multiple valve diseases (principal); I25.10 Atherosclerotic heart disease of native coronary artery without angina pectoris; Z95.2 Presence of prosthetic heart valve
CPT/HCPCS: 93306

== ENCOUNTER → 2021-04-12 | Outpatient (CLI) | payer BC ==
[2019-03-07 13:27] VITALS: BP 126/66
[~2021-04-12] MED LIST changes: +AMLO-186 PO; -AMLO5TAB10 PO; +MIRT-7 PO; -MIRT15TA3 PO; +REGADENOSON 0.4 MG/5 ML DISP.SYRIN. IV ONE
--- NOTE | 2021-04-12 17:55 | RAD ---
MR#: [id number] Date of Study: 04/12/2021 Ordering Physician: ANGELIA LOBO, Referring Physician: DANIA LYNN Tech: RT Janae (R) (N) APPROVED REPORT Test Type: Pharmacological Stress Nurse/Tech: Thuy Amezquita R.N. Test Indications: CAD Cardiac History: CAD, mitral valve replacement 12 yrs ago,htn Medications: Zocor Medical History: See Electronic Medical Record Resting ECG: SR w/ pvc's Resting Heart Rate: 74 bpm Resting Blood Pressure: 167/75mmHg Pretest Chest Pain: No chest pain Nurse/Tech Notes S1S2, lungs CTA Consent: The procedure was explained to the patient in lay terms. Informed consent was witnessed. Velasquez eout was entered into [employer]. History and Stress Test performed by IVON Ayala, CALVIN (R) (N) Pharm. Details Pharmacologic stress testing was performed using 0.4mg per 5ml of regadenoson given intravenously ove r 7-10 seconds. Stress Symptoms SOA, stomach upset, H/A POST EXERCISE Reason for Termination: Patient request Max HR: 114 bpm Max Blood Pressure: 137/61mmHg Blood Pressure response to exercise: Normal blood pressure response during stress. Heart Rate response to exercise: wnl Chest Pain: No. Arrhythmia: Yes. increased amount of pvc's INTERPRETATION Stress EKG Conclusion: The resting EKG shows a sinus rhythm with T wave inversion in aVR and V1. The stress EKG shows no significant changes from baseline. No EKG evidence of stress-induced ischemia. Imaging Protocol IMAGE PROTOCOL: Rest Tc-99m/stress Tc-99m 1 day Rest: Stress: Viability: Radiopharm.Tc99m RuhbzkjtcBf29v Sestamibi Dose9.7mCi 31.5mCi Duration 13min. 13min. Img Date 04/12/2021 04/12/2021 Inj-Img Rklg21lqe. 60min. Rest Admin Site:IV - Right AntecubitalAdministrator:IVON Ayala ARRT (R)(N) Stress Admin Site: IV - Right AntecubitalAdministrator: Stacy Sears, RT (R)(N) STRESS DATA End Diast. Vol.76.0mlLVEDV index BSA49.0ml End Syst. Vol.23.0mlLVESV index BSA15.0ml Myocardial Paka682.0gEject. Pjeoqrqb68.0% Stress Scores Regional WT0.00Summed WT11.00 Regional WM0.00Summed WM9.00 LV Perfusion The stress scans show a slight inferior wall defect. The rest scans show no significant defects. Nuclear imaging shows a slight reversible inferior wall defect. This is a borderline finding but a s mall area of reversible ischemia cannot be excluded. Wall Motion Left ventricular systolic function is normal with no regional wall motion abnormalities and an ejecti on fraction of 67%. LV Perf. Quant 17 Seg. SSS5.00 17 Seg. SRS1.00 17 Seg. SDS4.00 Stress Defect Extent (% LAD)0.00Rest Defect Extent (% LAD)0.00Rev. Defect Extent (% LAD)0.00 Stress Defect Extent (% LCX) 17.50Rest Defect Extent (% LCX)0.00Rev. Defect Extent (% LCX)8.80 Stress Defect Extent (% RCA)8.90Rest Defect Extent (% RCA)0.00Rev. Defect Extent (% RCA)0.00 Stress Defect Extent (% LAURENCE)8.50Rest Defect Extent (% LAURENCE)0.00Rev. Defect Extent (% LAURENCE)1.50 Conclusion 1. No EKG evidence of stress-induced ischemia. 2. Nuclear imaging shows a borderline inferior defect which is reversible that is suggestive but not diagnostic of a small area of reversible ischemia. 3. Normal left ventricular systolic function with an ejection fraction of 67%. 4. Moderate to moderate low risk Lexiscan nuclear stress test. Signed by : Scott Ortiz MD Electronically Approved : 04/12/2021 17:54:47
--- NOTE | 2021-04-13 14:15 | CARD ---
MR#: [id number] Date of Study: 04/12/2021 Ordering Physician: ANGELIA LOBO, Referring Physician: Olena LYNN: Oj [facility] APPROVED REPORT EXAM: Two-dimensional and M-mode echocardiogram with Doppler and color Doppler. Other Information Quality : AverageHR: 77bpm Rhythm : NSR INDICATION Cardiac Disease: CAD Surgery/Intervention Status/Post Mitral Valve Replacement: Bioprosthetic 2D DIMENSIONS RVDd2.7 (2.9-3.5cm)Left Atrium(2D)5.2 (1.6-4.0cm) IVSd1.0 (0.7-1.1cm)Aortic Root(2D)2.8 (2.0-3.7cm) LVDd4.5 (3.9-5.9cm)LVOT Diameter1.7 (1.8-2.4cm) PWd1.0 (0.7-1.1cm)LVDs3.7 (2.5-4.0cm) FS (%) 18.3 %SV34.6 ml Aortic Valve AoV Peak Ponce.133.8cm/sAoV VTI28.5cm AO Peak GR.7.2mmHgLVOT Peak Ponce.78.2cm/s LVOT VTI 18.58cmAO Mean GR.4mmHg AMSHA (VMAX)1.76ny4TRY (VTI)1.53cm2 AI P 1/2 Xlve917js Mitral Valve MV E Dwttcsob300.4cm/sMV DECEL GECK839wk MV A Hnxwvbty648.4cm/sMV JFW92az E/A Ratio1.2MVA (PHT)2.26cm2 TDI E/Medial E'39.8 Pulmonary Valve PV Peak Ylsdnhmz36.7cm/sPV Peak Grad.3mmHg Tricuspid Valve TR P. Rtzctkpc299ib/sTR Peak Gr.32mmHg Pulmonary Vein S1 Zzgwixjx66.9cm/sD2 Qxuglknm90.5cm/s LEFT VENTRICLE The left ventricle is normal size. There is normal left ventricular wall thickness. The systolic func tion is moderately decreased. Estimated ejection fraction is 35 to 40%. Septal motion consistent with post-operative state. Not able to assess diastolic dysfunction due to confounding valvular disease. No left ventricle thrombus noted on this study. There is no ventricular septal defect visualized. The re is no left ventricular aneurysm. There is no mass noted in the left ventricle. RIGHT VENTRICLE The right ventricle is normal size. There is normal right ventricular wall thickness. The right ventr icular systolic function is normal. ATRIA The left atrium is moderately dilated. The right atrium size is normal. The interatrial septum is int act with no evidence for an atrial septal defect or patent foramen ovale as noted on 2-D or Doppler i maging. AORTIC VALVE The aortic valve is mildly thickened but opens well. The aortic valve is trileaflet. Doppler and Tony r Flow revealed mild aortic regurgitation. There is no significant aortic valvular stenosis. There is no aortic valvular vegetation. MITRAL VALVE There is no evidence of mitral valve prolapse. There is no significant mitral valve stenosis. Doppler and Color-flow revealed mild mitral regurgitation. Bioprosthetic valve appears well seated. TRICUSPID VALVE The tricuspid valve is normal in structure and function. Doppler and Color Flow revealed mild to mode rate tricuspid regurgitation. The PA pressure was estimated at 46 mmHg. There is no tricuspid valve p rolapse or vegetation. There is no tricuspid valve stenosis. PULMONIC VALVE The pulmonary valve is normal in structure and function. Mild pulmonic regurgitation There is no pulm onic valvular stenosis. GREAT VESSELS The aortic root is normal in size. The ascending aorta is normal in size. The pulmonary artery is nor mal. The IVC is normal in size and collapses >50% with inspiration. PERICARDIAL EFFUSION There is no pleural effusion. There is no evidence of significant pericardial effusion. Critical Notification Critical Value: No <Conclusion> The left ventricle is normal size. The systolic function is moderately decreased. Estimated ejection fraction is 35 to 40%. Septal motion consistent with post-operative state. Doppler and Color Flow revealed mild aortic regurgitation. There is no significant aortic valvular stenosis. Bioprosthetic valve appears well seated. There is no significant mitral valve stenosis. Doppler and Color-flow revealed mild mitral regurgitation. Doppler and Color Flow revealed mild to moderate tricuspid regurgitation. The PA pressure was estimated at 46 mmHg. Signed by : Scott Ortiz MD Electronically Approved : 04/13/2021 14:15:38
== END ==
LOC: NM 09:25
PROVIDERS: ATTEND Internal Medicine Cardiovascular Disease
DX: I08.8 Other rheumatic multiple valve diseases (principal); I25.10 Atherosclerotic heart disease of native coronary artery without angina pectoris; Z95.2 Presence of prosthetic heart valve
CPT/HCPCS: 78452; 93017; 93306; A9500; J2785